=== PATIENT | male | born 1935 | race Caucasian/White ===

== ENCOUNTER 2021-12-14 08:51 | Emergency (ER) | payer MEDICARE, OTHER ==
[2021-12-14 09:37] LABS: CARBON DIOXIDE,CO2 24.4 mmol/L (21.0-32.0); POTASSIUM,K 4.1 mmol/L (3.5-5.1)
[2021-12-14 09:41] LABS: ESTIMATED GFR 57.4 ml/min
[2021-12-14] MEDS ORDERED: Albuterol 8 GM Inhaler INH STA (10:34)
[2021-12-14] MEDS ORDERED: methylPREDNISolone Sodium Succinate 125 MG/2 ML SDV IVPUSH STA (10:34)
[2021-12-14] MEDS ORDERED: Azithromycin 250 MG Tab PO STA (10:35)
[2021-12-14] MEDS ORDERED: cefTRIAXone 1 GM in Sodium Chloride 0.9% 50 ML IV STA (10:35)
[2021-12-14] MEDS ORDERED: Sodium Chloride 0.9% 500 ML IV SCH (12:45)
[2021-12-14] MEDS ORDERED: Prochlorperazine 10 MG/2 ML SDV IVPUSH STA (13:40)
== END 2021-12-14 14:50 | disposition home or self-care (01) ==
LOC: MW.ED 08:51
DX: J18.9 Pneumonia, unspecified organism (principal); E11.9 Type 2 diabetes mellitus without complications; F17.210 Nicotine dependence, cigarettes, uncomplicated; Z79.899 Other long term (current) drug therapy; Z20.822 Contact with and (suspected) exposure to COVID-19; Z79.84 Long term (current) use of oral hypoglycemic drugs
CPT/HCPCS: 36415; 71045; 80053; 83880; 84484; 85025; 93005; 96365; 96375; 99285; A9270; J0696; J2930; J7040; U0002; 93010; 99284

== ENCOUNTER 2021-12-20 09:15 | Inpatient (IN) | payer MEDICARE ==
[2021-12-20] MEDS ORDERED: cefTRIAXone 1 GM in Sodium Chloride 0.9% 50 ML IV ONE (09:40)
[2021-12-20] MEDS ORDERED: Sodium Chloride 0.9% 2.5 ML Syringe FLUSH PRN (09:40)
[2021-12-20] MEDS ORDERED: Sodium Chloride 0.9% 10 ML Syringe FLUSH PRN (09:40)
[2021-12-20] MEDS ORDERED: methylPREDNISolone Sodium Succinate 125 MG/2 ML SDV IVPUSH ONE (09:40)
[2021-12-20] MEDS ORDERED: Diltiazem 50 MG/10 ML SDV IVPUSH ONE ×3 (09:42→12:37)
[2021-12-20] MEDS ORDERED: Ipratropium 0.02% 0.5 MG/2.5 ML Neb Soln NEB ONE (09:46)
[2021-12-20 10:10] LABS: CARBON DIOXIDE,CO2 28.9 mmol/L (21.0-32.0); POTASSIUM,K 4.8 mmol/L (3.5-5.1)
[2021-12-20 10:11] LABS: ESTIMATED GFR 57.4 ml/min
[2021-12-20] MEDS ORDERED: Furosemide 40 MG/4 ML VIAL IVPUSH ONE (10:53)
[2021-12-20] MEDS ORDERED: Furosemide 40 MG/4 ML VIAL ONE (10:54)
[2021-12-20] MEDS ORDERED: Furosemide 20 MG/2 ML VIAL IVPUSH SCH (11:00)
[2021-12-20] MEDS ORDERED: Iopamidol 755 MG/ML 500 ML Multipack Bottle IVPUSH STA (11:41)
[2021-12-20] MEDS ORDERED: Diltiazem 120 MG Cap.CD PO ONE (11:52)
[2021-12-20] MEDS ORDERED: Diltiazem 100 MG in Sodium Chloride 0.9% 100 ML IV SCH (13:00)
[2021-12-20] MEDS ORDERED: Levofloxacin/Dextrose 5%-Water 500 MG in Premix Bag 1 BAG IV ONE (13:24)
[2021-12-20] MEDS ORDERED: Albuterol/Ipratropium 3.0-0.5 MG/3 ML Neb Soln NEB PRN (14:03)
[2021-12-20] MEDS ORDERED: Acetaminophen 325 MG Tab PO PRN (14:03)
[2021-12-20] MEDS ORDERED: Enoxaparin 100 MG/1 ML Syringe SUBCUT SCH (14:45)
[2021-12-20] MEDS ORDERED: 50% Dextrose in Water 50 ML Syringe IVPUSH PRN (14:46)
[2021-12-20] MEDS ORDERED: Glucagon,Human Recombinant 1 MG Vial IM PRN (14:46)
[2021-12-20] MEDS ORDERED: Amiodarone In Dextrose,Iso-Osm 150 MG in Premix Bag 1 BAG IV ONE ×2 (15:04)
[2021-12-20] MEDS: Pantoprazole 40 MG in Sodium Chloride 0.9% 10 ML IVPUSH SCH (15:05)
[2021-12-20] MEDS: Enoxaparin 100 MG/1 ML Syringe SUBCUT SCH (15:05)
[2021-12-20] MEDS: Insulin Aspart 100 Units/ML 3 ML Pen SUBCUT SCH (17:20)
[2021-12-20] MEDS: Melatonin 3 MG Tab PO PRN (20:40)
[2021-12-20] MEDS ORDERED: Furosemide 40 MG/4 ML VIAL IVPUSH SCH (21:00)
[2021-12-20] MEDS ORDERED: LORazepam 2 MG/ML SDV IVPUSH ONE (22:27)
[2021-12-21] MEDS: Enoxaparin 100 MG/1 ML Syringe SUBCUT SCH ×2 (02:59→15:51)
[2021-12-21 06:15] LABS: CARBON DIOXIDE,CO2 29.3 mmol/L (21.0-32.0); ESTIMATED GFR 52.3 ml/min; POTASSIUM,K 3.7 mmol/L (3.5-5.1)
[2021-12-21] MEDS: Levothyroxine 112 MCG Tab PO SCH (06:40)
[2021-12-21] MEDS: Insulin Aspart 100 Units/ML 3 ML Pen SUBCUT SCH ×3 (07:54→17:34)
[2021-12-21] MEDS ORDERED: Furosemide 40 MG/4 ML VIAL IVPUSH SCH (08:00)
[2021-12-21] MEDS: predniSONE 20 MG Tab PO SCH (08:12)
[2021-12-21] MEDS: Pantoprazole 40 MG in Sodium Chloride 0.9% 10 ML IVPUSH SCH (08:12)
[2021-12-21] MEDS: Sertraline 100 MG Tab PO SCH (08:12)
[2021-12-21] MEDS ORDERED: Potassium Chloride 20 MEQ Tab.ER PO ONE (09:37)
[2021-12-21] MEDS: Fluticasone/Umeclidin/Vilanter [Trelegy Ellipta] INH SCH (13:43)
[2021-12-21] MEDS: Levofloxacin/Dextrose 5%-Water 750 MG in Premix Bag 1 BAG IV SCH (14:04)
[2021-12-21] MEDS: Amiodarone 200 MG Tab PO SCH (16:23)
[2021-12-21] MEDS: Benzocaine/Cetylpyridinium/Menthol Lozenge MUCMEM PRN (16:23)
[2021-12-21] MEDS: Digoxin 500 MCG/2 ML Amp IVPUSH SCH ×2 (17:49→22:53)
[2021-12-21] MEDS: Montelukast 10 MG Tab PO SCH (20:05)
[2021-12-21] MEDS: atorvaSTATin 40 MG Tab PO SCH (20:05)
[2021-12-21] MEDS: Melatonin 3 MG Tab PO PRN (20:32)
[2021-12-22] MEDS: Enoxaparin 100 MG/1 ML Syringe SUBCUT SCH (04:44)
[2021-12-22] MEDS: Levothyroxine 112 MCG Tab PO SCH (06:29)
[2021-12-22] MEDS: Benzocaine/Cetylpyridinium/Menthol Lozenge MUCMEM PRN ×3 (06:29→18:17)
[2021-12-22] MEDS: Insulin Aspart 100 Units/ML 3 ML Pen SUBCUT SCH ×3 (07:54→17:14)
[2021-12-22 08:06] LABS: BLOOD UREA NITROGEN,BUN 34 mg/dL (7.0-18.0); CARBON DIOXIDE,CO2 27.3 mmol/L (21.0-32.0); CHLORIDE,CL 104 mmol/L (98-107); GLUCOSE RANDOM 162 mg/dL (74-106); POTASSIUM,K 3.9 mmol/L (3.5-5.1); SODIUM,NA 140 mmol/L (136-148)
[2021-12-22 08:10] LABS: ESTIMATED GFR > 60.0 ml/min
[2021-12-22] MEDS ORDERED: Furosemide 40 MG/4 ML VIAL IVPUSH ONE (08:39)
[2021-12-22] MEDS ORDERED: Potassium Chloride 20 MEQ Tab.ER PO ONE (08:41)
[2021-12-22] MEDS: Digoxin 125 MCG Tab PO SCH ×2 (08:42→16:04)
[2021-12-22] MEDS: predniSONE 20 MG Tab PO SCH (08:57)
[2021-12-22] MEDS: Amiodarone 200 MG Tab PO SCH (08:57)
[2021-12-22] MEDS: Sertraline 100 MG Tab PO SCH (08:57)
[2021-12-22] MEDS: Pantoprazole 40 MG in Sodium Chloride 0.9% 10 ML IVPUSH SCH (08:58)
[2021-12-22] MEDS: Fluticasone/Umeclidin/Vilanter [Trelegy Ellipta] INH SCH (09:25)
[2021-12-22] MEDS: Fluticasone/Salmeterol 100-50 MCG Inhalation Powder 14/Diskus INH SCH ×2 (13:43→20:00)
[2021-12-22] MEDS: Levofloxacin/Dextrose 5%-Water 750 MG in Premix Bag 1 BAG IV SCH (13:43)
[2021-12-22] MEDS ORDERED: Warfarin 5 MG Tab PO SCH (14:00)
[2021-12-22] MEDS ORDERED: Warfarin Sliding Scale PO SCH (14:00)
[2021-12-22] MEDS: Metoprolol Tartrate 25 MG Tab PO SCH (19:56)
[2021-12-22] MEDS: Montelukast 10 MG Tab PO SCH (19:59)
[2021-12-22] MEDS: atorvaSTATin 40 MG Tab PO SCH (19:59)
[2021-12-22] MEDS: Melatonin 3 MG Tab PO PRN (20:28)
[2021-12-23 06:08] LABS: POTASSIUM,K 4.1 mmol/L (3.5-5.1)
[2021-12-23 06:10] LABS: ESTIMATED GFR 57.4 ml/min
[2021-12-23] MEDS: Levothyroxine 112 MCG Tab PO SCH (07:17)
[2021-12-23] MEDS: Insulin Aspart 100 Units/ML 3 ML Pen SUBCUT SCH ×3 (07:18→17:46)
[2021-12-23] MEDS: Amiodarone 200 MG Tab PO SCH (08:06)
[2021-12-23] MEDS: Sertraline 100 MG Tab PO SCH (08:06)
[2021-12-23] MEDS: predniSONE 20 MG Tab PO SCH (08:06)
[2021-12-23] MEDS: Digoxin 125 MCG Tab PO SCH (08:06)
[2021-12-23] MEDS: Metoprolol Tartrate 25 MG Tab PO SCH ×2 (08:06→20:55)
[2021-12-23] MEDS: Pantoprazole 40 MG in Sodium Chloride 0.9% 10 ML IVPUSH SCH (08:07)
[2021-12-23] MEDS: Fluticasone/Umeclidin/Vilanter [Trelegy Ellipta] INH SCH (08:08)
[2021-12-23] MEDS: Fluticasone/Salmeterol 100-50 MCG Inhalation Powder 14/Diskus INH SCH ×2 (08:09→20:54)
[2021-12-23] MEDS: Benzocaine/Cetylpyridinium/Menthol Lozenge MUCMEM PRN (11:49)
[2021-12-23] MEDS ORDERED: Furosemide 40 MG Tab PO ONE (12:01)
[2021-12-23] MEDS: Levofloxacin/Dextrose 5%-Water 750 MG in Premix Bag 1 BAG IV SCH (13:02)
[2021-12-23] MEDS ORDERED: Furosemide 40 MG/4 ML VIAL IVPUSH ONE (13:06)
[2021-12-23] MEDS ORDERED: Warfarin 5 MG Tab PO SCH (15:00)
[2021-12-23] MEDS: atorvaSTATin 40 MG Tab PO SCH (20:55)
[2021-12-23] MEDS: Montelukast 10 MG Tab PO SCH (20:55)
[2021-12-24] MEDS: Levothyroxine 112 MCG Tab PO SCH (06:33)
[2021-12-24 06:55] LABS: CARBON DIOXIDE,CO2 31.9 mmol/L (21.0-32.0); POTASSIUM,K 4.1 mmol/L (3.5-5.1)
[2021-12-24 06:56] LABS: ESTIMATED GFR 48.1 ml/min
[2021-12-24] MEDS: Insulin Aspart 100 Units/ML 3 ML Pen SUBCUT SCH ×2 (09:00→12:51)
[2021-12-24] MEDS ORDERED: Digoxin 125 MCG Tab PO SCH (09:00)
[2021-12-24] MEDS ORDERED: Warfarin 2.5 MG Tab PO SCH (10:00)
[2021-12-24] MEDS: Sertraline 100 MG Tab PO SCH (10:19)
[2021-12-24] MEDS: Metoprolol Tartrate 25 MG Tab PO SCH (10:19)
[2021-12-24] MEDS: predniSONE 20 MG Tab PO SCH (10:20)
[2021-12-24] MEDS: Amiodarone 200 MG Tab PO SCH (10:20)
[2021-12-24] MEDS: Fluticasone/Salmeterol 100-50 MCG Inhalation Powder 14/Diskus INH SCH (10:22)
[2021-12-24] MEDS: Pantoprazole 40 MG in Sodium Chloride 0.9% 10 ML IVPUSH SCH (10:22)
[2021-12-24] MEDS: Fluticasone/Umeclidin/Vilanter [Trelegy Ellipta] INH SCH (10:31)
== END 2021-12-24 12:30 | disposition home or self-care (01) | DRG 291 ==
LOC: MW.ED 09:15 → MW.ICU 13:14 → MW.MS 12-23 16:10
PROVIDERS: ADMIT Student in an Organized Health Care Education/Training Program; ATTEND Student in an Organized Health Care Education/Training Program
DX: I11.0 Hypertensive heart disease with heart failure (principal); J18.9 Pneumonia, unspecified organism; I50.21 Acute systolic (congestive) heart failure; J90 Pleural effusion, not elsewhere classified; J44.1 Chronic obstructive pulmonary disease with (acute) exacerbation; Z79.84 Long term (current) use of oral hypoglycemic drugs; Z79.890 Hormone replacement therapy; J44.0 Chronic obstructive pulmonary disease with (acute) lower respiratory infection; I10 Essential (primary) hypertension; I48.91 Unspecified atrial fibrillation; Z20.822 Contact with and (suspected) exposure to COVID-19; E11.9 Type 2 diabetes mellitus without complications; E78.00 Pure hypercholesterolemia, unspecified; I35.0 Nonrheumatic aortic (valve) stenosis; I42.9 Cardiomyopathy, unspecified; Z79.82 Long term (current) use of aspirin; Z79.899 Other long term (current) drug therapy; Z86.010 Personal history of colon polyps; Z90.49 Acquired absence of other specified parts of digestive tract; Z79.52 Long term (current) use of systemic steroids
CPT/HCPCS: 36415; 71045; 71275; 80053; 81001; 83605; 83880; 84484 ×2; 85025; 85610; 87040 ×2; 93005 ×2; 96365; 96375; 96376; 99285; A9270; J0696; J1940; J2930; J3490 ×5; Q9967; U0002; 80048; 82947; 83735; 84100; 85027; 93010; 93306; 99291; C9113; J0282; J1160; J1650; J1815-GY; J1956; J2060

== ENCOUNTER 2022-01-03 17:25 | Observation (INO) | payer MEDICARE ==
[2022-01-03] MEDS ORDERED: Sodium Chloride 0.9% 10 ML Syringe FLUSH PRN (17:51)
[2022-01-03] MEDS ORDERED: Sodium Chloride 0.9% 2.5 ML Syringe FLUSH PRN (17:51)
[2022-01-03] MEDS ORDERED: Albuterol/Ipratropium 3.0-0.5 MG/3 ML Neb Soln NEB ONE (18:04)
[2022-01-03] MEDS ORDERED: Dexamethasone 10 MG/ML SDV IVPUSH ONE (18:04)
[2022-01-03] MEDS ORDERED: Furosemide 40 MG/4 ML VIAL IVPUSH ONE ×2 (18:40→19:54)
[2022-01-03 19:26] LABS: CORONAVIRUS COVID-19 NAA NEGATIVE (NEGATIVE); INFLUENZA A NAA NEGATIVE (NEGATIVE); INFLUENZA B NAA NEGATIVE (NEGATIVE)
[2022-01-03] MEDS: atorvaSTATin 40 MG Tab PO SCH (23:03)
[2022-01-03] MEDS: Montelukast 10 MG Tab PO SCH (23:03)
[2022-01-03] MEDS: Tamsulosin 0.4 MG Cap.ER PO SCH (23:03)
[2022-01-03] MEDS: Metoprolol Tartrate 25 MG Tab PO SCH (23:06)
[2022-01-03] MEDS ORDERED: Warfarin 2.5 MG Tab PO ONE (23:30)
[2022-01-04] MEDS: Pantoprazole 40 MG Tab.CR PO SCH ×2 (06:21→08:58)
[2022-01-04] MEDS: Levothyroxine 112 MCG Tab PO SCH ×2 (06:22→08:58)
[2022-01-04] MEDS ORDERED: Glucagon,Human Recombinant 1 MG Vial IM PRN (06:32)
[2022-01-04] MEDS ORDERED: 50% Dextrose in Water 50 ML Syringe IVPUSH PRN (06:32)
[2022-01-04] MEDS: Insulin Aspart 100 Units/ML 3 ML Pen SUBCUT SCH ×3 (06:43→16:52)
[2022-01-04 06:59] LABS: CARBON DIOXIDE,CO2 23.6 mmol/L (21.0-32.0); POTASSIUM,K 4.7 mmol/L (3.5-5.1)
[2022-01-04] MEDS: Amiodarone 200 MG Tab PO SCH (08:40)
[2022-01-04] MEDS: Metoprolol Tartrate 25 MG Tab PO SCH ×2 (08:41→20:44)
[2022-01-04] MEDS ORDERED: Furosemide 40 MG Tab PO ONE (11:26)
[2022-01-04] MEDS ORDERED: Albuterol/Ipratropium 3.0-0.5 MG/3 ML Neb Soln NEB ONE (13:04)
[2022-01-04] MEDS ORDERED: Albuterol/Ipratropium 3.0-0.5 MG/3 ML Neb Soln ONE (13:06)
[2022-01-04] MEDS ORDERED: Albuterol/Ipratropium 3.0-0.5 MG/3 ML Neb Soln NEB PRN (13:14)
[2022-01-04] MEDS ORDERED: Warfarin Sliding Scale PO SCH (14:00)
[2022-01-04] MEDS ORDERED: Furosemide 40 MG/4 ML VIAL IVPUSH ONE (17:59)
[2022-01-04] MEDS: Tamsulosin 0.4 MG Cap.ER PO SCH (20:44)
[2022-01-04] MEDS: Montelukast 10 MG Tab PO SCH (20:44)
[2022-01-04] MEDS: atorvaSTATin 40 MG Tab PO SCH (20:44)
[2022-01-05] MEDS: Levothyroxine 112 MCG Tab PO SCH (06:35)
[2022-01-05] MEDS: Pantoprazole 40 MG Tab.CR PO SCH (06:35)
[2022-01-05] MEDS: Insulin Aspart 100 Units/ML 3 ML Pen SUBCUT SCH ×2 (08:04→11:47)
[2022-01-05] MEDS: Amiodarone 200 MG Tab PO SCH (08:12)
[2022-01-05] MEDS: Metoprolol Tartrate 25 MG Tab PO SCH (08:12)
== END 2022-01-05 13:25 | disposition home or self-care (01) ==
LOC: MW.ED 17:25 → MW.MS 20:04
PROVIDERS: ADMIT Internal Medicine; ATTEND Internal Medicine
DX: I50.9 Heart failure, unspecified (principal); R09.02 Hypoxemia; J44.9 Chronic obstructive pulmonary disease, unspecified; I35.0 Nonrheumatic aortic (valve) stenosis; J90 Pleural effusion, not elsewhere classified; J98.11 Atelectasis; I45.10 Unspecified right bundle-branch block; I44.30 Unspecified atrioventricular block; I48.92 Unspecified atrial flutter; E16.2 Hypoglycemia, unspecified; R00.0 Tachycardia, unspecified; Z79.51 Long term (current) use of inhaled steroids; Z79.899 Other long term (current) drug therapy; Z79.82 Long term (current) use of aspirin; Z20.822 Contact with and (suspected) exposure to COVID-19
CPT/HCPCS: 0240U; 36415; 71045; 80048; 80053; 82947; 83880; 84484; 85025; 85610; 93005; 96374; 96375; 99285; A9270; J1100; J1815; J1940; J3490; 93010; 96376; 99217; 99218; 99224; G0378; J7620-GY

== ENCOUNTER 2022-01-09 12:01 | Emergency (ER) | payer MEDICARE ==
[2022-01-09] MEDS ORDERED: methylPREDNISolone Sodium Succinate 125 MG/2 ML SDV IVPUSH ONE (12:18)
[2022-01-09] MEDS ORDERED: Sodium Chloride 0.9% 2.5 ML Syringe FLUSH PRN (12:18)
[2022-01-09] MEDS ORDERED: Albuterol/Ipratropium 3.0-0.5 MG/3 ML Neb Soln NEB ONE (12:18)
[2022-01-09] MEDS ORDERED: Sodium Chloride 0.9% 10 ML Syringe FLUSH PRN (12:18)
[2022-01-09 12:54] LABS: CARBON DIOXIDE,CO2 26.6 mmol/L (21.0-32.0); POTASSIUM,K 4.1 mmol/L (3.5-5.1)
[2022-01-09] MEDS ORDERED: Furosemide 40 MG/4 ML VIAL IVPUSH ONE (13:15)
== END 2022-01-09 16:08 | disposition home or self-care (01) ==
LOC: MW.ED 12:01
DX: J44.9 Chronic obstructive pulmonary disease, unspecified (principal); I11.0 Hypertensive heart disease with heart failure; I50.20 Unspecified systolic (congestive) heart failure; E78.00 Pure hypercholesterolemia, unspecified; E11.9 Type 2 diabetes mellitus without complications; F17.210 Nicotine dependence, cigarettes, uncomplicated; Z20.822 Contact with and (suspected) exposure to COVID-19; Z79.82 Long term (current) use of aspirin; Z79.899 Other long term (current) drug therapy
CPT/HCPCS: 36415; 71045; 80053; 83735; 83880; 84484; 85025; 85610; 93005; 96374; 96375; 99285; J1940; J2930; J3490; U0002; 93010; J7620-GY

== ENCOUNTER 2022-01-11 21:08 | Observation (INO) | payer MEDICARE ==
[2022-01-11 21:54] LABS: CARBON DIOXIDE,CO2 30.9 mmol/L (21.0-32.0); POTASSIUM,K 4.3 mmol/L (3.5-5.1)
[2022-01-11] MEDS ORDERED: Albuterol/Ipratropium 3.0-0.5 MG/3 ML Neb Soln NEB ONE (22:05)
[2022-01-11] MEDS ORDERED: Iopamidol 755 MG/ML 500 ML Multipack Bottle IVPUSH ONE (23:57)
[2022-01-12] MEDS ORDERED: cefTRIAXone 1 GM in Sodium Chloride 0.9% 50 ML IV ONE (00:07)
[2022-01-12] MEDS ORDERED: Azithromycin 500 MG in Sodium Chloride 0.9% 250 ML IV ONE (00:08)
[2022-01-12] MEDS ORDERED: Furosemide 40 MG/4 ML VIAL IVPUSH STA (00:28)
[2022-01-12] MEDS ORDERED: 50% Dextrose in Water 50 ML Syringe IVPUSH PRN (06:50)
[2022-01-12] MEDS ORDERED: Glucagon,Human Recombinant 1 MG Vial IM PRN (06:50)
[2022-01-12] MEDS: Insulin Aspart 100 Units/ML 3 ML Pen SUBCUT SCH ×2 (08:19→11:33)
== END 2022-01-12 12:50 | disposition hospice, home (50) ==
LOC: MW.ED 21:08 → MW.MS 01-12 00:29
PROVIDERS: ADMIT Internal Medicine; ATTEND Internal Medicine
DX: R09.02 Hypoxemia (principal); J44.9 Chronic obstructive pulmonary disease, unspecified; E78.00 Pure hypercholesterolemia, unspecified; E11.9 Type 2 diabetes mellitus without complications; G47.30 Sleep apnea, unspecified; I11.0 Hypertensive heart disease with heart failure; I50.20 Unspecified systolic (congestive) heart failure; I35.0 Nonrheumatic aortic (valve) stenosis; Z79.899 Other long term (current) drug therapy; Z98.890 Other specified postprocedural states; Z90.49 Acquired absence of other specified parts of digestive tract; Z79.84 Long term (current) use of oral hypoglycemic drugs; Z79.82 Long term (current) use of aspirin; Z20.822 Contact with and (suspected) exposure to COVID-19
CPT/HCPCS: 36415; 71045; 71275; 80053; 82947; 83605; 83880; 84484; 85025; 85610; 87040; 93005; 96365; 96367; 99285; J0456; J0696; J1815; J1940; J7050; Q9967; U0002; J7620-GY